=== PATIENT | female | born 1950 | race Caucasian/White ===

== ENCOUNTER 2018-04-15 10:59 | Emergency (ER) | payer OTHER ==
[2018-04-15 11:21] VITALS: BMI 28.5
--- NOTE | 2018-04-15 12:04 | PDOC ---
History of Present Illness - General Chief Complaint: Chronic pain Stated Complaint: PAIN Time Seen by Provider: 04/15/18 12:04 - History of Present Illness Initial Comments: 67 year old female with PMH of HTN, HLD, IDDM, and chronic back pain for a month presenting with continuing back pain. States that she fell on her left side one month prior when she slipped on her wood covered floor at which point she subsequently felt left sided back pain and buttox pain that eventually started to radiate down her left leg in the following weeks. The pain may be beter when she bends over but she is not entirely certain. Doesn't admit to numbness or tingling down the leg or weakness outside of inability to move 2/2 pain. She has been to multiple ERs and UCs since then and states that XRs have been negative. She has not seen her PCP, a neurosurgeon, or orthopedic surgeon for this. She also hasn't tried heat therapy, PT, or at-home stretching. She has tried meloxicam, naproxen, ibuprofen, and recently gabapentin without much relief. She has some mild bladder leakage but this well preceded her onset of traumatic left LE pain. Denies any fevers, chills, nausea, vomiting, chest pain , SOB, diarrhea, or to her symptoms. 04/15/18 12:36 Past History - Past Medical History Allergies/Adverse Reactions: Allergies Allergy/AdvReac Type Severity Reaction Status Date / Time No Known Allergies Allergy Verified 04/15/18 11:17 Home Medications: Ambulatory Orders Albuterol Sulfate Inhaler - [Ventolin Hfa Inhaler -] 2 inh PO Q6H 04/15/18 Aspirin [ASA -] 81 mg PO DAILY 04/15/18 Cyclobenzaprine HCl 5 mg PO DAILY 04/15/18 Doxycycline Hyclate 100 mg PO DAILY 04/15/18 Enalapril/Hydrochlorothiazide [Vaseretic 10-25 mg Tablet] 0.5 each PO DAILY 12/24 Gabapentin 200 mg PO PRN PRN 04/15/18 Hydrocortisone 1% Cream [Hytone 1% Cream -] 1 applic TP DAILY 04/15/18 Ibuprofen 600 mg PO QID 04/15/18 Insulin (LOG) Aspart [NovoLOG -] 16 unit SQ DAILY 04/15/18 Insulin (Levemir) [Levemir Vial] 30 unit SQ HS 04/15/18 Loratadine 10 mg PO DAILY 04/15/18 Meloxicam [Mobic (Nf) -] 15 mg PO DAILY 04/15/18 Metformin HCl [Metformin HCl ER] 1,000 mg PO BID 04/15/18 Montelukast Na [Singulair -] 10 mg PO HS 04/15/18 Mupirocin Ointment [Bactroban 2% Ointment -] 1 applic TP DAILY 04/15/18 Naproxen 500 mg PO DAILY 04/15/18 Simvastatin 40 mg PO HS 04/15/18 COPD: No Diabetes: Yes HTN: Yes - Suicide/Smoking/Psychosocial Hx Smoking History: Never smoked Hx Alcohol Use: No Drug/Substance Use Hx: No Review of Systems - Review of Systems Constitutional: No: Chills, Diaphoresis, Fever HEENTM: No: Eye Pain, Blurred Vision, Tearing Respiratory: No: Cough, Orthopnea, Shortness of Breath Cardiac (ROS): No: Chest Pain, Edema, Irregular Heart Rate, Lightheadedness, Palpitations ABD/GI: No: Diarrhea, Nausea, Poor Appetite, Vomiting : No: Burning, Dysuria, Discharge Musculoskeletal: Yes: Back Pain, Joint Pain, Muscle Pain Integumentary: No: Bruising, Erythema, Flushing, Lesions Neurological: No: Numbness, Paresthesia, Seizure, Tingling, Weakness Psychiatric: No: Anxiety, Depression Endocrine: No: Flushing, Intolerance to Heat, Increased Hunger, Unexplained Weight Gain Hematologic/Lymphatic: No: Anemia, Blood Clots, Easy Bleeding *Physical Exam - Vital Signs Last Vital Signs Temp Pulse Resp BP Pulse Ox 97.7 F 71 16 144/65 99 04/15/18 11:18 04/15/18 11:18 04/15/18 11:18 04/15/18 11:18 04/15/18 11:18 - Physical Exam General Appearance: Yes: Appropriately Dressed, Obese. No: Apparent Distress HEENT: positive: EOMI, YESSENIA, Normal ENT Inspection, Normal Voice Neck: positive: Trachea midline, Normal Thyroid, Supple. negative: Tender, Rigid Respiratory/Chest: positive: Lungs Clear. negative: Chest Tender, Normal Breath Sounds (slightly distant breath soudns bilaterally with fine basilar crackles), Respiratory Distress, Accessory Muscle Use Cardiovascular: positive: Regular Rhythm, Regular Rate Gastrointestinal/Abdominal: positive: Normal Bowel Sounds, Flat, Soft. negative : Tender Musculoskeletal: positive: Decreased Range of Motion (decrased flexion at left hip with tightness of gluteal muscle. Worsening pain with flexion of hip. ), Muscle Spasm, Vertebral Tenderness. negative: Normal Inspection Extremity: positive: Normal Capillary Refill, Tender (tender left lateral gluteal pain extending down lateral aspect of left leg and bilaterally across lower leg.). negative: Normal Inspection, Normal Range of Motion (resricted left hip flexion 2/2 pain. 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 negative: Normal Color, Dry Neurologic: positive: Fully Oriented, Alert, Normal Mood/Affect, Normal Response. negative: Motor Strength 5/5 (per above, no nubness, tingling, or paresthesias) Moderate Sedation - Procedure Monitoring Vital Signs: Procedure Monitoring Vital Signs Temperature 97.7 F 04/15/18 11:18 Pulse Rate 71 04/15/18 11:18 Respiratory Rate 16 04/15/18 11:18 Blood Pressure 144/65 04/15/18 11:18 O2 Sat by Pulse Oximetry (%) 99 04/15/18 11:18 Medical Decision Making - Medical Decision Making 67 year old with acute on chronic back pain. CT demonstrating disk bulge at L3- L4 without impingement. Patient has PT set up for this month and her pain improved with Toradol. Will DC with ORtho follow up ad Tylenol use instructions. 04/15/18 15:04 *DC/Admit/Observation/Transfer Diagnosis at time of Disposition: Back pain of lumbar region with sciatica - Discharge Dispostion Disposition: HOME Condition at time of disposition: Improved Decision to Admit order: No - Referrals Referrals: ON STAFF,NOT [Primary Care Provider] - Blair Mendez MD [Staff Physician] - - Patient Instructions Additional Instructions: Please use Tylenol and hot packs for the pain. Please follow up with the orthopedic surgeon n this sheet of paper if you do not have an appointment just yet. Please follow up at your physical therapy appointment. Please return to the ED if you have new or worsening symptoms. - Post Discharge Activity
[2018-04-15] MEDS ORDERED: KETOROLAC TROMETHAMINE 30 MG/1 ML VIAL IM ONE (13:00)
[2018-04-15] MEDS ORDERED: KETOROLAC TROMETHAMINE 30 MG/1 ML VIAL ONE (13:38)
--- NOTE | 2018-04-15 14:50 | PDOC ---
Attending Attestation - Resident Resident Name: Jacklyn Wei - ED Attending Attestation I have performed the following: I have examined & evaluated the patient, The case was reviewed & discussed with the resident, I agree w/resident's findings & plan, Exceptions are as noted - HPI HPI: 04/15/18 14:44 The patient is a 67 year old female with a significant PMH of DM, HTN, and HLD who presents to the emergency department with left back and hip pain for the past month. Patient reports she slipped on a wooden floor one month ago and has been experiencing pain since. Patient notes she has been evaluated multiple times for this pain in multiple emergency departments and urgent care centers.She states xrays done over the past month have come back negative. Patient has not discussed this pain with her PCP or followed up with ortho. She is scheduled for physical therapy in a few weeks. She has taken meloxicam, naproxen, ibuprofen, and gabapentin for her pain over the past month with minimal to moderate relief. Patient has been also experiencing mild bladder leakage for the past year but denies any new urinary symptoms or incontinence or retention. No stool incontinence or retention. Denies LE weakness or numbness. The patient denies weakness/numbness/tingling, chest pain, shortness of breath, headache and dizziness. Denies fever, chills, nausea, vomit, diarrhea and constipation. Denies dysuria, frequency, urgency and hematuria. Allergies: NKA Past surgical history: None reported. Social history: No reported alcohol, drug or cigarette use. - Physicial Exam PE: 04/15/18 14:46 GENERAL: Awake, alert, and fully oriented, in no acute distress HEAD: No signs of trauma EYES: PERRLA, EOMI, sclera anicteric, conjunctiva clear ENT: Hearing grossly normal, nares patent, oropharynx clear without exudates. Moist mucosa NECK: Normal ROM, supple, no lymphadenopathy, JVD, or masses LUNGS: Breath sounds equal, clear to auscultation bilaterally. No wheezes, and no crackles HEART: Regular rate and rhythm, normal S1 and S2, no murmurs, rubs or gallops ABDOMEN: Soft, nontender, normoactive bowel sounds. No guarding, no rebound. No masses EXTREMITIES: Normal range of motion, no edema, no deformities. No cords, erythema, or tenderness. BACK: no midline cervical or thoracic ttp. +L3/L4 midline ttp. +straight leg test. NEUROLOGICAL: Normal speech, cranial nerves intact, 5/5 strength in all 4 extremities, normal sensation to light touch in all 4 extremities, normal cerebellar exam, antalgic but steady gait with walker, normal reflexes and tone SKIN: Warm, Dry, normal turgor, no rashes or lesions noted. - Medical Decision Making 04/15/18 14:50 67yo F presents to the ED with 1 month of low back/L hip pain after a fall. Pt has been taking multiple medications for this pain, including ibuprofen, gabapentin. Pt came today asking for a pill to make the pain "go away." Has been taking ibuprofen 600mg Q6h which helps and requests a refill. Vitals wnl. + L3/4 ttp, thus CT was obtained to r/o acute fracture given fall [address] negative for fx, reveals only degenerative changes. No red flags c/f cord compression as she has no LE weakness, numbness, stool or urine incontinence or retention. Pt has PT appointment as an outpatient. AMbulating with walker in the ED. Will give referral to ortho and refill motrin. I discussed the physical exam findings, ancillary test results and final diagnoses with the patient. I answered all of the patient's questions. The patient was satisfied with the care received and felt comfortable with the discharge plan and treatment plan. The patient will call their primary care physician within 24 hours to arrange follow-up and will return to the Emergency Department with any new, persistent or worsening symptoms.
[2018-04-15 16:03] VITALS: BP 135/69; PULSE 79; TEMP 98
== END 2018-04-15 15:20 | disposition home or self-care (01) ==
LOC: JER 10:59
PROC: 3E0333Z Introduction of Anti-inflammatory into Peripheral Vein, Percutaneous Approach (ICD-10-PCS; principal; 2018-04-15)
DX: M54.42 Lumbago with sciatica, left side (principal); I10 Essential (primary) hypertension; E11.9 Type 2 diabetes mellitus without complications; Z79.4 Long term (current) use of insulin; E78.00 Pure hypercholesterolemia, unspecified
CPT/HCPCS: 72131-TC; 96372; 99282-25